=== PATIENT | female | born 1995 | race Caucasian/White ===

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

== ENCOUNTER 2017-01-05 15:45 | Observation (INO) | payer MEDICAID ==
[~2017-01-05] VITALS: Ht 162.6 cm; Wt 127.0 kg
== END 2017-01-05 17:00 | disposition home or self-care (01) ==
LOC: SPU 15:45
PROVIDERS: ADMIT Specialist; ATTEND Specialist
DX: O42.92 Full-term premature rupture of membranes, unspecified as to length of time between rupture and onset of labor (principal); O99.113 Other diseases of the blood and blood-forming organs and certain disorders involving the immune mechanism complicating pregnancy, third trimester; D72.829 Elevated white blood cell count, unspecified; Z3A.37 37 weeks gestation of pregnancy
CPT/HCPCS: G0378

== ENCOUNTER 2017-01-16 16:10 | Observation (INO) | payer MEDICAID ==
[~2017-01-16] VITALS: Ht 162.6 cm; Wt 3.6 kg
== END 2017-01-16 17:40 | disposition home or self-care (01) ==
LOC: SPU 16:10
DX: O36.8190 Decreased fetal movements, unspecified trimester, not applicable or unspecified (principal); Z3A.00 Weeks of gestation of pregnancy not specified
CPT/HCPCS: 81002; G0378

== ENCOUNTER 2017-01-18 15:41 | Observation (INO) | payer MEDICAID ==
[~2017-01-18] VITALS: Ht 162.6 cm; Wt 127.0 kg
[2017-01-18 15:59] VITALS: BP_SYST 121
== END 2017-01-18 16:30 | disposition home or self-care (01) ==
LOC: SPU 15:41
PROVIDERS: ADMIT Specialist; ATTEND Specialist
DX: O42.92 Full-term premature rupture of membranes, unspecified as to length of time between rupture and onset of labor (principal); Z3A.38 38 weeks gestation of pregnancy
CPT/HCPCS: 81002; G0378

== ENCOUNTER 2017-02-03 20:02 | Inpatient (IN) | payer MEDICAID ==
[~2017-02-03] VITALS: Ht 162.6 cm; Wt 126.6 kg
[2017-02-03] MEDS ORDERED: LR 1,000 ML IV SCH (20:31)
[2017-02-03] MEDS ORDERED: LR 1,000 ML IV ONE (20:31)
[2017-02-03] MEDS ORDERED: TERBUTALINE SULFATE 1 MG/ML VIAL SUBCUT ONE (20:45)
[2017-02-03] MEDS ORDERED: NALBUPHINE HCL 10 MG/ML AMP IVP PRN (20:45)
[2017-02-03 21:38] LABS: BASOPHILS % (AUTO) 0.4 % (0.0-2.0); EOSINOPHILS # (AUTO) 0.2 K/uL (0.0-0.4); EOSINOPHILS % (AUTO) 1.8 % (0.0-4.0); HEMATOCRIT 34.9 % (36-48); HEMOGLOBIN 11.7 g/dL (12.0-16.0); LYMPHOCYTES # (AUTO) 2.2 K/uL (1.0-5.5); LYMPHOCYTES % (AUTO) 23.4 % (20.5-51.5); MEAN CORPUSCULAR HEMOGLOBIN 29 pg (27-31); MEAN CORPUSCULAR HGB CONC 34 % (32-36); MEAN CORPUSCULAR VOLUME 87 fL (79.0-98.0); MONOCYTES # (AUTO) 0.6 K/uL (0.0-1.0); MONOCYTES % (AUTO) 6.6 % (1.7-9.3); NEUTROPHILS # (AUTO) 6.5 K/uL (1.8-7.7); NEUTROPHILS % (AUTO) 67.8 % (40.0-70.0); PLATELET COUNT (AUTO) 225 K/uL (130-430); RED BLOOD CELL COUNT(AUTO) 4.01 MIL/uL (4.2-6.2); RED CELL DISTRIBUTION WIDTH 13.7 % (9.0-15.0); WHITE BLOOD COUNT (AUTO) 9.5 K/uL (4.5-11.0)
[2017-02-03] MEDS: MISOPROSTOL 100 MCG TABLET (CYTOTEC) VG SCH (21:51)
[2017-02-03 23:57] VITALS: BP_SYST 138
[2017-02-04] MEDS: MISOPROSTOL 100 MCG TABLET (CYTOTEC) VG SCH (01:43)
[2017-02-04] MEDS ORDERED: OXYTOCIN/NORMAL SALINE 1,000 ML IV SCH (04:00)
[2017-02-04] MEDS ORDERED: OXYTOCIN 30 UNIT in NACL 0.9% 1,000 ML IV ONE (09:45)
[2017-02-04] MEDS ORDERED: fentaNYL CITRATE/PF 100 MCG/2 ML AMP ONE (19:49)
[2017-02-04] MEDS ORDERED: FENT2mCg/mL-ROPIVA0.2%/NS EPID 150 ML EP ONE (19:50)
[2017-02-04] MEDS ORDERED: LR 500 ML IV ONE (22:11)
[2017-02-04] MEDS ORDERED: ePHEDrine sulfate 50 MG/ML VIAL IVP PRN (22:15)
[2017-02-04] MEDS ORDERED: FENT2mCg/mL-ROPIVA0.2%/NS EPID 150 ML EP SCH (22:15)
[2017-02-04] MEDS ORDERED: fentaNYL CITRATE/PF 100 MCG/2 ML AMP EP ONE (22:15)
[2017-02-05] MEDS ORDERED: AMPICILLIN SODIUM 2 GM VIAL ONE (03:29)
[2017-02-05] MEDS ORDERED: ACETAMINOPHEN 325 MG TABLET ONE (03:30)
[2017-02-05] MEDS ORDERED: OXYTOCIN/NORMAL SALINE 1,000 ML IV ONE (03:51)
[2017-02-05] MEDS ORDERED: SIMETHICONE 80 MG TAB.CHEW PO PRN (04:00)
[2017-02-05] MEDS ORDERED: MEPERIDINE HCL/PF 50 MG/ML AMP IVP PRN (04:00)
[2017-02-05] MEDS ORDERED: SENNOSIDES/DOCUSATE SODIUM 1 TAB TABLET(SENOKOT-S) PO PRN (04:00)
[2017-02-05] MEDS ORDERED: HYDROcodone/ACETAMIN 5-325 MG TAB (NORCO/ VICODIN) PO PRN (04:00)
[2017-02-05] MEDS ORDERED: BISACODYL 10 MG/SUPPOSITORY RC PRN (04:00)
[2017-02-05] MEDS ORDERED: LANOLIN 7 GM OINT. TP PRN (04:00)
[2017-02-05] MEDS ORDERED: ANUSOL 1 EA SUPP.RECT (PREPARATION H) RC PRN (04:00)
[2017-02-05] MEDS ORDERED: DOCUSATE SODIUM 100 MG CAPSULE PO PRN (04:00)
[2017-02-05] MEDS ORDERED: NS IRRIG SOLN 1000 ML IR ONE (04:30)
[2017-02-05] MEDS ORDERED: MORPHINE SULFATE 10MG/10ML PF AMP EP ONE (04:30)
[2017-02-05] MEDS ORDERED: LIDOCAINE 1% 10 MG/ML, 20 ML MDV INJ ONE (04:30)
[2017-02-05] MEDS ORDERED: ONDANSETRON HCL 4 MG/2 ML VIAL IVP ONE (04:30)
[2017-02-05] MEDS ORDERED: CEFAZOLIN 2 GM IVPB PREMIX 50 ML IV ONE ×2 (04:30)
[2017-02-05] MEDS ORDERED: LR 1,000 ML IV.SOLN IV ONE (04:30)
[2017-02-05] MEDS ORDERED: OXYTOCIN 10 UNIT/ML VIAL IV ONE (04:30)
[2017-02-05] MEDS ORDERED: METHYLERGONOVINE MALEATE 0.2 MG/ML AMP IM ONE (04:30)
[2017-02-05] MEDS ORDERED: LR 1,000 ML IV SCH (05:40)
[2017-02-05] MEDS ORDERED: KETOROLAC TROMETHAMINE 60 MG/2 ML VIAL IM PRN (05:45)
[2017-02-05] MEDS ORDERED: METOCLOPRAMIDE HCL 10 MG/2 ML VIAL IVP PRN (05:45)
[2017-02-05] MEDS ORDERED: ONDANSETRON HCL 4 MG/2 ML VIAL IVP PRN (05:45)
[2017-02-05] MEDS ORDERED: MORPHINE 4 MG/ML INJ. SYRINGE IVP PRN ×3 (05:45)
[2017-02-05] MEDS ORDERED: MORPHINE SULFATE 10MG/10ML PF AMP EP SCH (05:45)
[2017-02-05] MEDS ORDERED: NALOXONE HCL 0.4 MG/ML AMP (NARCAN) IVP PRN (05:45)
[2017-02-05] MEDS ORDERED: DIPHENHYDRAMINE INJ 50 MG/ML VIAL IM PRN (05:45)
[2017-02-05] MEDS: MORPHINE 4 MG/ML INJ. SYRINGE ONE ×2 (05:48→05:55)
[2017-02-05 06:02] VITALS: BP_SYST 142
[2017-02-05] MEDS ORDERED: ACETAMINOPHEN 325 MG TABLET PO PRN (08:00)
[2017-02-05] MEDS ORDERED: AMPICILLIN SODIUM 2 GM in NS 100 ML IV SCH (08:00)
[2017-02-05] MEDS ORDERED: ROPIVACAINE 40 MG/20 ML AMP EP ONE (11:00)
[2017-02-05] MEDS: CEFAZOLIN 1 GM IVPB PREMIX 50 ML IV SCH ×2 (11:05→17:22)
[2017-02-05 16:53] LABS: HEMATOCRIT 34.1 % (36-48); HEMOGLOBIN 11.4 g/dL (12.0-16.0)
[2017-02-05] MEDS ORDERED: NS IV SCH (18:45)
[2017-02-05] MEDS ORDERED: GENTAMICIN SULFATE IV SCH (18:45)
[2017-02-05] MEDS ORDERED: LR 1,000 ML IV ONE (20:45)
[2017-02-05] MEDS ORDERED: TEMAZEPAM 15 MG CAPSULE PO PRN (21:00)
[2017-02-05] MEDS ORDERED: GENTAMICIN 100 mg/50 mL NS 50 ML IV ONE (21:08)
[2017-02-05] MEDS ORDERED: GENTAMICIN 120 MG/100 ML IV ONE (21:08)
[2017-02-05] MEDS ORDERED: NS IV ONE (21:08)
[2017-02-05] MEDS ORDERED: GENTAMICIN 80 mg/100 mL NS 100 ML IV ONE (21:08)
[2017-02-05] MEDS ORDERED: CLINDAMYCIN 900 mg/50mL D5W 50 ML IV ONE (23:00)
[2017-02-06] MEDS: IBUPROFEN 800 MG TABLET PO PRN ×3 (02:15→16:17)
[2017-02-06 06:33] LABS: BASOPHILS % (AUTO) 0.2 % (0.0-2.0); EOSINOPHILS # (AUTO) 0.1 K/uL (0.0-0.4); EOSINOPHILS % (AUTO) 0.8 % (0.0-4.0); HEMATOCRIT 31.6 % (36-48); HEMOGLOBIN 10.4 g/dL (12.0-16.0); LYMPHOCYTES # (AUTO) 0.8 K/uL (1.0-5.5); LYMPHOCYTES % (AUTO) 6.5 % (20.5-51.5); MEAN CORPUSCULAR HEMOGLOBIN 29 pg (27-31); MEAN CORPUSCULAR HGB CONC 33 % (32-36); MEAN CORPUSCULAR VOLUME 90 fL (79.0-98.0); MONOCYTES # (AUTO) 0.3 K/uL (0.0-1.0); MONOCYTES % (AUTO) 2.9 % (1.7-9.3); NEUTROPHILS # (AUTO) 10.8 K/uL (1.8-7.7); NEUTROPHILS % (AUTO) 89.6 % (40.0-70.0); PLATELET COUNT (AUTO) 160 K/uL (130-430); RED BLOOD CELL COUNT(AUTO) 3.53 MIL/uL (4.2-6.2); RED CELL DISTRIBUTION WIDTH 14.2 % (9.0-15.0)
[2017-02-06] MEDS: CLINDAMYCIN 900 MG in D5W 100 ML IV SCH ×4 (08:00→14:00)
== END 2017-02-06 18:00 | disposition home or self-care (01) | DRG 540 ==
LOC: SPU 20:02
PROVIDERS: ADMIT Specialist; ATTEND Specialist
PROC: 3E0S3CZ (ICD-10-PCS; 2017-02-04)
PROC: 00HU33Z Insertion of Infusion Device into Spinal Canal, Percutaneous Approach (ICD-10-PCS; 2017-02-04)
PROC: 4A0HXCZ Measurement of Products of Conception, Cardiac Rate, External Approach (ICD-10-PCS; 2017-02-05)
PROC: 10907ZC Drainage of Amniotic Fluid, Therapeutic from Products of Conception, Via Natural or Artificial Opening (ICD-10-PCS; 2017-02-05)
PROC: 3E0P7GC Introduction of Other Therapeutic Substance into Female Reproductive, Via Natural or Artificial Opening (ICD-10-PCS; 2017-02-05)
PROC: 10D00Z1 Extraction of Products of Conception, Low, Open Approach (ICD-10-PCS; principal; 2017-02-05 04:30)
DX: O48.0 Post-term pregnancy (principal); O86.4 Pyrexia of unknown origin following delivery; Z68.42 Body mass index [BMI] 45.0-49.9, adult; O62.0 Primary inadequate contractions; O77.0 Labor and delivery complicated by meconium in amniotic fluid; O76 Abnormality in fetal heart rate and rhythm complicating labor and delivery; O99.214 Obesity complicating childbirth; E66.01 Morbid (severe) obesity due to excess calories; Z37.0 Single live birth; Z3A.40 40 weeks gestation of pregnancy
CPT/HCPCS: 36415; 82565-TC; 85018-TC; 85025; 86592; 86886; 86900; 86901; 87070-TC; 87186-TC; 88307; 93005; 94760; J0290; J0690; J1580; J1885; J2001; J2210; J2270; J2274; J2300; J2405; J2590; J2795; J3010; J3490; J7030; J7060; J7120

== ENCOUNTER 2017-02-07 22:10 | Inpatient (IN) | payer MEDICAID ==
[~2017-02-07] VITALS: Ht 162.6 cm; Wt 127.0 kg
[2017-02-07 22:10] VITALS: BP_SYST 125
[~2017-02-07 22:10] MED LIST: CEFAZOLIN 2 GM IVPB PREMIX 50 ML IV ONE; LR 1,000 ML IV.SOLN IV ONE; METHYLERGONOVINE MALEATE 0.2 MG/ML AMP IM ONE; MORPHINE SULFATE 10MG/10ML PF AMP EP ONE; NS IRRIG SOLN 1000 ML IR ONE; ONDANSETRON HCL 4 MG/2 ML VIAL IVP ONE
[2017-02-08] VITALS (7 sets, daily range): BP systolic 105–128
[2017-02-08 00:17] LABS: BASOPHILS % (AUTO) 0.2 % (0.0-2.0); EOSINOPHILS # (AUTO) 0.2 K/uL (0.0-0.4); EOSINOPHILS % (AUTO) 2.1 % (0.0-4.0); HEMATOCRIT 29.1 % (36-48); HEMOGLOBIN 9.8 g/dL (12.0-16.0); LYMPHOCYTES # (AUTO) 1.2 K/uL (1.0-5.5); LYMPHOCYTES % (AUTO) 12.6 % (20.5-51.5); MEAN CORPUSCULAR HEMOGLOBIN 29 pg (27-31); MEAN CORPUSCULAR HGB CONC 34 % (32-36); MEAN CORPUSCULAR VOLUME 88 fL (79.0-98.0); MONOCYTES # (AUTO) 0.4 K/uL (0.0-1.0); MONOCYTES % (AUTO) 4.6 % (1.7-9.3); NEUTROPHILS # (AUTO) 7.7 K/uL (1.8-7.7); NEUTROPHILS % (AUTO) 80.5 % (40.0-70.0); PLATELET COUNT (AUTO) 238 K/uL (130-430); RED BLOOD CELL COUNT(AUTO) 3.32 MIL/uL (4.2-6.2); RED CELL DISTRIBUTION WIDTH 14.3 % (9.0-15.0); WHITE BLOOD COUNT (AUTO) 9.5 K/uL (4.5-11.0)
[2017-02-08 00:32] LABS: CREATININE 0.8 mg/dL (0.55-1.30); POTASSIUM 3.4 mmol/L (3.5-5.1)
[2017-02-08 00:37] LABS: ALBUMIN 1.9 g/dL (3.4-4.8); TOTAL BILIRUBIN 0.3 mg/dL (0.0-1.0); TOTAL PROTEIN, SERUM 6.1 g/dL (6.4-8.3)
[2017-02-08] MEDS ORDERED: OXYCODONE/ACETAMINOPHEN 5-325 TABLET PO PRN (01:15)
[2017-02-08] MEDS ORDERED: OXYC-130 PO (01:20)
[2017-02-08] MEDS ORDERED: DOCU-144 PO (01:20)
[2017-02-08] MEDS ORDERED: IBUP-1480 PO (01:20)
[2017-02-08] MEDS ORDERED: PIPERACILLIN/TAZOBACTAM 3.375 GM/VIAL (ZOSYN) IV ONE (01:47)
[2017-02-08] MEDS: PIPERACILLIN/TAZO 3.375/DEX-IS 50 ML IV SCH ×3 (02:57→12:34)
[2017-02-08] MEDS ORDERED: CEPH-568 PO (14:35)
== END 2017-02-08 15:35 | disposition home or self-care (01) | DRG 561 ==
LOC: SED 22:10 → SMU 02-08 01:01
PROVIDERS: ADMIT Obstetrics & Gynecology; ATTEND Obstetrics & Gynecology
DX: O86.89 Other specified puerperal infections (principal)
CPT/HCPCS: 36415; 80053; 83605; 85025; 87040-TC; 87081; 99285; J0690; J2210; J2274; J2405; J2543; J7050; J7060; J7120